=== PATIENT | male | born 1950 | race Two or more races ===

== ENCOUNTER 2021-07-03 13:02 | Inpatient (IN) | payer OTHER ==
[~2021-07-03] VITALS: Ht 175.3 cm; Wt 78.1 kg
[2021-07-03] MEDS ORDERED: SODIUM CHLORIDE 0.9% 1,000 ML IV ONE ×2 (13:45→19:15)
[2021-07-03 14:15] LABS: Albumin 3.1 g/dL (3.4-5.0); Calcium 8.9 mg/dL (8.5-10.1)
[2021-07-03 14:18] LABS: BUN/Creatinine Ratio 3.5; Bilirubin, Total 0.7 mg/dL (0.2-1.0); Total Protein 9.2 g/dL (6.4-8.2)
[2021-07-03 14:22] LABS: Lactic Acid w/Reflex 8.4 mmol/L (0.4-2.0)
[2021-07-03] MEDS ORDERED: MORPHINE SULFATE INJECTION 2 MG/ML SYRG IV ONE (14:45)
[2021-07-03] MEDS ORDERED: SODIUM CHLORIDE 0.9% 1,000 ML IVB ONE (14:45)
[2021-07-03] MEDS ORDERED: FUROSEMIDE 40 MG/4 ML VIAL IV ONE (14:45)
[2021-07-03] MEDS ORDERED: MIDAZOLAM HCL 5 MG/ML-1ML VIAL ONE (15:41)
[2021-07-03] MEDS ORDERED: HEPARIN SODIUM (PORCINE) 5000 UNITS/ML 1ML VIAL IV ONE ×2 (15:45→16:30)
[2021-07-03] MEDS ORDERED: MIDAZOLAM HCL 5 MG/ML-1ML VIAL IV ONE (15:45)
[2021-07-03] MEDS ORDERED: HEPARIN DRIP/D5W 100UNITS/ML 250 ML IV SCH (15:45)
[2021-07-03] MEDS: MIDAZOLAM DRIP 50 mg/50mL 50 ML IV SCH (15:45)
[2021-07-03 15:58] VITALS: BP 98/77
[2021-07-03] MEDS ORDERED: MIDAZOLAM DRIP 50 mg/50mL 50 ML IV ONE (15:59)
[2021-07-03] MEDS ORDERED: fentaNYL Drip 2500mCg/250mlNS 250 ML IV ONE (16:08)
[2021-07-03] MEDS: fentaNYL Drip 2500mCg/250mlNS 250 ML IV SCH (16:15)
[2021-07-03] MEDS: NOREPINEPHRINE 8 MG/250ML KIT 250 ML IV SCH (17:13)
[2021-07-03 18:20] VITALS: BP 116/62
[2021-07-03 18:40] LABS: Basophils # (auto) 0 10 ^3/uL (0-0.2); Basophils % (auto) 0.5 % (0.0-2.0); Eosinophils # (auto) 0 10 ^3/uL (0-0.8); Hematocrit 31.2 % (41.0-53.0); Hemoglobin 10.2 g/dL (13.5-17.5); Lymphocytes # (auto) 0.2 10 ^3/uL (0.4-5.4); Mean Corpuscular Hemoglobin 29.5 pg (28.0-32.0); Mean Corpuscular Hgb Conc. 32.5 g/dL (32.0-36.0); Mean Corpuscular Volume 90.7 fL (80.0-100.0); Monocytes # (auto) 0.3 10 ^3/uL (0-1.3); Monocytes % (auto) 3.5 % (0.0-12.0); Red Blood Cells 3.44 10^6/uL (4.5-5.90); Red Cell Distribution Width 18.8 % (11.8-14.3); White Blood Cell 8.5 10^3/uL (4.4-10.8)
[2021-07-03] MEDS ORDERED: NITROGLYCERIN 0.4 MG SL TAB SL PRN (19:00)
[2021-07-03] MEDS ORDERED: MORPHINE SULFATE INJECTION 2 MG/ML SYRG IV PRN (19:00)
[2021-07-03] MEDS ORDERED: VANCOMYCIN PER PHARMACY 0 MG IV SCH (19:00)
[2021-07-03 19:03] LABS: INR 1.3 (0.9-1.15); Partial Thromboplastin Time 41.3 sec (23.6-33.0)
[2021-07-03] MEDS ORDERED: levoFLOXacin 250MG 50 ML IV ONE (19:15)
[2021-07-03] MEDS ORDERED: SODIUM CHLORIDE 0.9% 2,200 ML IV ONE (19:15)
[2021-07-03] MEDS ORDERED: VANCOMYCIN 1GM/250ML 250 ML IV ONE (19:15)
[2021-07-03] MEDS: HEPARIN DRIP/D5W 100UNITS/ML 250 ML IV SCH (19:17)
[2021-07-03 20:20] VITALS: BP 100/47
[2021-07-03] MEDS ORDERED: ACETAMINOPHEN 650 MG RECT SUPP PR ONE (21:30)
[2021-07-03] MEDS ORDERED: ACETAMINOPHEN 325 MG TAB PO PRN (22:15)
[2021-07-03] MEDS: AMIODARONE 450mg/250ml AE 250 ML IV SCH (22:15)
[2021-07-03 22:19] VITALS: BP 102/61
[2021-07-03] MEDS: IPRATROPIUM BROM 0.5 MG/2.5ML INH SOL NEB SCH (23:55)
[2021-07-03] MEDS: ALBUTEROL SULF 2.5 MG/0.5ML(0.5%) NEB SOLN NEB SCH (23:55)
[2021-07-04] VITALS (58 sets, daily range): BP systolic 26–155; BP diastolic 0–95
[2021-07-04] MEDS ORDERED: PHENYLEPHRINE INJ 40 MG in SODIUM CHL 0.9% 246 ML IV SCH ×2
[2021-07-04] MEDS ORDERED: PHENYLEPHRINE IV 250 ML IV ONE ×2 (00:04→02:18)
[2021-07-04] MEDS ORDERED: PHENYLEPHRINE HCL 10 MG/ML VL ONE ×2 (00:04→02:18)
[2021-07-04] MEDS: ATORVASTATIN 20 MG TAB NG SCH ×2 (00:23→21:43)
[2021-07-04] MEDS: VASOPRESSIN 50 UNITS in D5W 5% 247.5 ML IV SCH (02:13)
[2021-07-04] MEDS ORDERED: ALBUMIN 5% 250 ML IV ONE (02:30)
[2021-07-04] MEDS ORDERED: EPINEPHrine HCL 250 ML IV SCH ×2 (02:30→13:30)
[2021-07-04 02:42] LABS: Albumin 2.4 g/dL (3.4-5.0); BUN/Creatinine Ratio 3.7; Calcium 7.8 mg/dL (8.5-10.1); INR 1.33 (0.9-1.15); Partial Thromboplastin Time 63.2 sec (23.6-33.0); Potassium 4.9 mmol/L (3.5-5.1)
[2021-07-04 02:44] LABS: Bilirubin, Total 0.6 mg/dL (0.2-1.0); Total Protein 7.1 g/dL (6.4-8.2)
[2021-07-04 02:55] LABS: Basophils # (auto) 0.1 10 ^3/uL (0-0.2); Basophils % (auto) 0.8 % (0.0-2.0); Eosinophils # (auto) 0 10 ^3/uL (0-0.8); Eosinophils % (auto) 0.1 % (0.0-7.0); Hematocrit 34.3 % (41.0-53.0); Hemoglobin 10.9 g/dL (13.5-17.5); Lymphocytes # (auto) 0.9 10 ^3/uL (0.4-5.4); Lymphocytes % (auto) 5.4 % (10.0-50.0); Mean Corpuscular Hgb Conc. 31.8 g/dL (32.0-36.0); Mean Corpuscular Volume 91.4 fL (80.0-100.0); Monocytes # (auto) 0.6 10 ^3/uL (0-1.3); Monocytes % (auto) 3.3 % (0.0-12.0); Neutrophils # (auto) 15.2 10 ^3/uL (1.6-8.6); Neutrophils % (auto) 90.4 % (37.0-80.0); Nucleated Red Blood Cells % 0.2 %; Red Blood Cells 3.75 10^6/uL (4.5-5.90); White Blood Cell 16.8 10^3/uL (4.4-10.8)
[2021-07-04] MEDS: DOPamine 1600MCG/ML D5W 250 ML IV SCH ×2 (04:11→21:23)
[2021-07-04] MEDS ORDERED: SODIUM CHL 0.9% 1000 ML BAG XX ONE (07:15)
[2021-07-04] MEDS: ALBUTEROL SULF 2.5 MG/0.5ML(0.5%) NEB SOLN NEB SCH ×3 (07:30→19:01)
[2021-07-04] MEDS: IPRATROPIUM BROM 0.5 MG/2.5ML INH SOL NEB SCH ×3 (07:31→19:01)
[2021-07-04] MEDS: NOREPINEPHRINE 8 MG/250ML KIT 250 ML IV SCH (09:16)
[2021-07-04] MEDS: MIDAZOLAM DRIP 50 mg/50mL 50 ML IV SCH (09:17)
[2021-07-04] MEDS: PHENYLEPHRINE INJ 80 MG in SODIUM CHL 0.9% 242 ML IV SCH (10:52)
[2021-07-04] MEDS: ASPirin 81 mg TAB NG SCH (11:05)
[2021-07-04 12:37] LABS: INR 1.59 (0.9-1.15); Partial Thromboplastin Time 62.6 sec (23.6-33.0)
[2021-07-04 12:46] LABS: % Iron Saturation 48.9 % (20-55)
[2021-07-04] MEDS ORDERED: PANTOPRAZOLE 40 MG/10 ML VIAL INJ IV ONE (13:00)
[2021-07-04] MEDS ORDERED: LIDOCAINE 2%HCL (LOCAL ANESTH.) INJ 20ML MDV ONE (13:22)
[2021-07-04] MEDS ORDERED: HEPARIN IN NS 1000Units/500mL 0 ML ONE (13:22)
[2021-07-04] MEDS: EPINEPHrine HCL 250 ML IV SCH (13:30)
[2021-07-04] MEDS ORDERED: EPINEPHrine HCL 250 ML IV ONE (13:31)
[2021-07-04] MEDS ORDERED: SODIUM CHL 0.9% 0 ML ONE (13:57)
[2021-07-04] MEDS ORDERED: ANGIOMAX 250 MG VIAL IV ONE (13:57)
[2021-07-04] MEDS ORDERED: VANCOMYCIN 750mg/250ml 250 ML IV ONE ×2 (15:00→18:00)
[2021-07-04] MEDS ORDERED: PIPERACILLIN-TAZOB 2.25GM 50 ML IV ONE (15:15)
[2021-07-04] MEDS: fentaNYL Drip 2500mCg/250mlNS 250 ML IV SCH (16:15)
[2021-07-04] MEDS: HEPARIN DRIP/D5W 100UNITS/ML 250 ML IV SCH (17:00)
[2021-07-04 18:15] LABS: INR 1.99 (0.9-1.15)
[2021-07-04 18:27] LABS: Partial Thromboplastin Time 109.2 sec (23.6-33.0)
[2021-07-04] MEDS: AMIODARONE 450mg/250ml AE 250 ML IV SCH (19:15)
[2021-07-04] MEDS ORDERED: EPOETIN ALFA-EPBX 10,000 UNIT/1ML VIAL SC ONE (21:00)
[2021-07-05] VITALS (90 sets, daily range): BP systolic 27–194; BP diastolic 10–142
[2021-07-05] MEDS: VASOPRESSIN 50 UNITS in D5W 5% 247.5 ML IV SCH (00:30)
[2021-07-05] MEDS: PIPERACILLIN-TAZOB 2.25GM 50 ML IV SCH ×4 (00:59→23:49)
[2021-07-05] MEDS: IPRATROPIUM BROM 0.5 MG/2.5ML INH SOL NEB SCH ×4 (01:06→18:20)
[2021-07-05] MEDS: ALBUTEROL SULF 2.5 MG/0.5ML(0.5%) NEB SOLN NEB SCH ×2 (01:06→05:50)
[2021-07-05 01:27] LABS: INR 2.02 (0.9-1.15)
[2021-07-05 01:31] LABS: Partial Thromboplastin Time 70.1 sec (23.6-33.0)
[2021-07-05 04:20] LABS: Hematocrit 46.1 % (41.0-53.0); Hemoglobin 13.5 g/dL (13.5-17.5); Mean Corpuscular Hemoglobin 28.8 pg (28.0-32.0); Mean Corpuscular Hgb Conc. 29.2 g/dL (32.0-36.0); Mean Corpuscular Volume 98.6 fL (80.0-100.0); Red Blood Cells 4.67 10^6/uL (4.5-5.90); White Blood Cell 17.9 10^3/uL (4.4-10.8)
[2021-07-05 04:29] LABS: Red Cell Distribution Width 20.3 % (11.8-14.3)
[2021-07-05 04:31] LABS: Basophils % (manual) 0 (0.0-2.0); Blast Cells 0; Eosinophils % (manual) 0 (0-7); Metamyelocytes % 0; Promyelocytes % 0; Reactive Lymphocytes 0
[2021-07-05 06:57] LABS: Band Neutrophils % (manual) 31; Lymphocytes % (manual) 8 (10.0-50.0); Monocytes % (manual) 4 (0-12); Myelocytes % 3
[2021-07-05] MEDS: NOREPINEPHRINE 8 MG/250ML KIT 250 ML IV SCH (08:00)
[2021-07-05] MEDS: DOPamine 1600MCG/ML D5W 250 ML IV SCH (08:00)
[2021-07-05] MEDS: EPINEPHrine HCL 250 ML IV SCH (08:00)
[2021-07-05] MEDS: PHENYLEPHRINE INJ 80 MG in SODIUM CHL 0.9% 242 ML IV SCH (08:00)
[2021-07-05 09:45] LABS: INR 2.18 (0.9-1.15); Partial Thromboplastin Time 67.5 sec (23.6-33.0)
[2021-07-05] MEDS: PANTOPRAZOLE 40 MG/10 ML VIAL INJ IV SCH (10:00)
[2021-07-05] MEDS: AMIODARONE 450mg/250ml AE 250 ML IV SCH (10:15)
[2021-07-05] MEDS: ASPirin 81 mg TAB NG SCH (10:54)
[2021-07-05] MEDS: MIDAZOLAM DRIP 50 mg/50mL 50 ML IV SCH (15:45)
[2021-07-05] MEDS: fentaNYL Drip 2500mCg/250mlNS 250 ML IV SCH (16:15)
[2021-07-05] MEDS ORDERED: VANCOMYCIN 500 MG in D5W 5% 100 ML IV ONE (16:30)
[2021-07-05] MEDS: HEPARIN DRIP/D5W 100UNITS/ML 250 ML IV SCH (17:00)
[2021-07-05] MEDS: SODIUM BICARBONATE 50ML VIAL 50 ML in D5W 5% 1,000 ML IV SCH (17:55)
[2021-07-05] MEDS: ALBUTEROL SULF 2.5 MG/0.5ML(0.5%) NEB SOLN NEB PRN (18:21)
[2021-07-05 19:53] LABS: INR 2.71 (0.9-1.15)
[2021-07-05 19:58] LABS: Partial Thromboplastin Time 103.7 sec (23.6-33.0)
[2021-07-05] MEDS ORDERED: levoFLOXacin 250MG 50 ML IV SCH (22:00)
[2021-07-05] MEDS: ATORVASTATIN 20 MG TAB NG SCH (23:33)
[2021-07-05 23:44] LABS: Albumin 1.9 g/dL (3.4-5.0); Calcium 8.9 mg/dL (8.5-10.1)
[2021-07-06] VITALS (74 sets, daily range): BP systolic 25–176; BP diastolic 12–86
[2021-07-06 00:01] LABS: BUN/Creatinine Ratio 5.6; Bilirubin, Total 0.9 mg/dL (0.2-1.0); Total Protein 6.3 g/dL (6.4-8.2)
[2021-07-06 00:08] LABS: Potassium 6.1 mmol/L (3.5-5.1)
[2021-07-06] MEDS: IPRATROPIUM BROM 0.5 MG/2.5ML INH SOL NEB SCH ×3 (00:29→11:52)
[2021-07-06] MEDS: ALBUTEROL SULF 2.5 MG/0.5ML(0.5%) NEB SOLN NEB PRN ×3 (00:29→11:52)
[2021-07-06] MEDS: VASOPRESSIN 50 UNITS in D5W 5% 247.5 ML IV SCH (00:30)
[2021-07-06] MEDS ORDERED: SODIUM BICARBONATE 8.4 % INJ 50ML VIAL IV ONE (01:00)
[2021-07-06] MEDS ORDERED: InsuLIN REG 1unit/0.01ml Soln (100units/ml) IV ONE ×2 (01:00→10:30)
[2021-07-06] MEDS ORDERED: CALCIUM GLUC 1,000mg/50ml-NS 50 ML IV ONE (01:00)
[2021-07-06] MEDS ORDERED: DEXTROSE (50%) 50ML SYRG IV ONE ×2 (01:00→10:30)
[2021-07-06] MEDS ORDERED: SODIUM ZIRCONIUM CYCL 10 GM PAK PO ONE (01:00)
[2021-07-06] MEDS: AMIODARONE 450mg/250ml AE 250 ML IV SCH (01:15)
[2021-07-06 06:21] LABS: Hematocrit 28.2 % (41.0-53.0); Hemoglobin 9.2 g/dL (13.5-17.5); Mean Corpuscular Hemoglobin 29.1 pg (28.0-32.0); Mean Corpuscular Hgb Conc. 32.4 g/dL (32.0-36.0); Mean Corpuscular Volume 89.8 fL (80.0-100.0); Red Blood Cells 3.14 10^6/uL (4.5-5.90); Red Cell Distribution Width 19.5 % (11.8-14.3)
[2021-07-06 06:25] LABS: Albumin 1.6 g/dL (3.4-5.0); BUN/Creatinine Ratio 5.7; Calcium 8.7 mg/dL (8.5-10.1)
[2021-07-06 06:26] LABS: Basophils % (manual) 0 (0.0-2.0); Blast Cells 0; Eosinophils % (manual) 0 (0-7); Metamyelocytes % 0; Myelocytes % 0; Promyelocytes % 0; Reactive Lymphocytes 0
[2021-07-06 06:34] LABS: INR 1.61 (0.9-1.15); Partial Thromboplastin Time 69.7 sec (23.6-33.0)
[2021-07-06 06:36] LABS: Bilirubin, Total 0.9 mg/dL (0.2-1.0); Total Protein 5.8 g/dL (6.4-8.2)
[2021-07-06] MEDS: SODIUM BICARBONATE 50ML VIAL 50 ML in D5W 5% 1,000 ML IV SCH (06:43)
[2021-07-06] MEDS: PIPERACILLIN-TAZOB 2.25GM 50 ML IV SCH (06:44)
[2021-07-06 07:13] LABS: Potassium 5.6 mmol/L (3.5-5.1)
[2021-07-06 08:17] LABS: Band Neutrophils % (manual) 7; Lymphocytes % (manual) 3 (10.0-50.0); Monocytes % (manual) 8 (0-12)
[2021-07-06] MEDS: PHENYLEPHRINE INJ 80 MG in SODIUM CHL 0.9% 242 ML IV SCH ×2 (09:15→11:22)
[2021-07-06] MEDS: PANTOPRAZOLE 40 MG/10 ML VIAL INJ IV SCH (09:28)
[2021-07-06] MEDS: DOPamine 1600MCG/ML D5W 250 ML IV SCH (09:35)
[2021-07-06] MEDS ORDERED: CALCIUM CHL 100MG/ML 500 MG in D5W 5% 100 ML IV ONE (10:30)
[2021-07-06] MEDS: NOREPINEPHRINE 8 MG/250ML KIT 250 ML IV SCH (11:22)
[2021-07-06 11:47] LABS: INR 1.52 (0.9-1.15); Partial Thromboplastin Time 62.8 sec (23.6-33.0)
[2021-07-06] MEDS ORDERED: MORPHINE SULFATE INJECTION 2 MG/ML SYRG IV PRN (15:15)
[2021-07-06] MEDS ORDERED: LORazepam 2MG/ML-1ML VIAL IV PRN (15:15)
[2021-07-06] MEDS ORDERED: ceFAZolin 1GM/50ML 50 ML IV SCH (16:00)
== END 2021-07-06 21:25 | DRG 871 ==
LOC: EDBD 13:02 → ER 13:02 → TELE 18:58 → ICU WEST 07-04 07:25
PROVIDERS: ADMIT Internal Medicine; ATTEND Internal Medicine
PROC: 06HY33Z Insertion of Infusion Device into Lower Vein, Percutaneous Approach (ICD-10-PCS; principal; 2021-07-03)
PROC: B54BZZA Ultrasonography of Right Lower Extremity Veins, Guidance (ICD-10-PCS; 2021-07-03)
PROC: 5A1945Z Respiratory Ventilation, 24-96 Consecutive Hours (ICD-10-PCS; 2021-07-04)
PROC: 0BH17EZ Insertion of Endotracheal Airway into Trachea, Via Natural or Artificial Opening (ICD-10-PCS; 2021-07-04)
DX: A41.01 Sepsis due to Methicillin susceptible Staphylococcus aureus (principal); J96.01 Acute respiratory failure with hypoxia; R65.21 Severe sepsis with septic shock; N18.6 End stage renal disease; J18.9 Pneumonia, unspecified organism; G92.9 Unspecified toxic encephalopathy; I21.9 Acute myocardial infarction, unspecified; I50.41 Acute combined systolic (congestive) and diastolic (congestive) heart failure; K72.00 Acute and subacute hepatic failure without coma; J81.1 Chronic pulmonary edema; E44.1 Mild protein-calorie malnutrition; E87.1 Hypo-osmolality and hyponatremia; J98.11 Atelectasis; E87.2 Acidosis; D68.59 Other primary thrombophilia; I82.402 Acute embolism and thrombosis of unspecified deep veins of left lower extremity; I13.2 Hypertensive heart and chronic kidney disease with heart failure and with stage 5 chronic kidney disease, or end stage renal disease; Z66 Do not resuscitate; I25.10 Atherosclerotic heart disease of native coronary artery without angina pectoris; I25.5 Ischemic cardiomyopathy; D64.9 Anemia, unspecified; Z20.822 Contact with and (suspected) exposure to COVID-19; E87.5 Hyperkalemia; E78.5 Hyperlipidemia, unspecified; Z68.25 Body mass index [BMI] 25.0-25.9, adult; Z95.1 Presence of aortocoronary bypass graft
CPT/HCPCS: 31500; 36415; 36556; 36600; 71045; 76604; 80053; 80061; 80202; 82550; 82728; 82805; 82962; 83540; 83550; 83605; 83735; 83880; 84443; 84484; 85007; 85025; 85027; 85379; 85610; 85730; 87040; 87070; 87077; 87081; 87147; 87186; 87205; 87426; 93005; 93306; 93970; 94002; 94003; 94640; 96361; 96365; 96367; 96368; 96375; 99291; C9113; G0378; J0171; J2250; J2543; J7060